=== PATIENT | female | born 1955 | race Caucasian/White ===

== ENCOUNTER 2018-10-15 13:56 | Outpatient (CLI) | payer MEDICARE ==
--- NOTE | 2018-10-15 15:01 | RAD ---
RIGHT HAND THREE VIEWS: History: Fall with injury to hand. FINDINGS: Carpals appear normally aligned. Degenerative changes are seen at the inner carpal joints and the car pal metacarpal joints. There is a small fragment from the head of the first metacarpal at the MCP joint. This appears well c orticated and does not appear to represent an acute injury. It has the appearance of an old injury. There is mild narrowing of the first MCP joint. Mild degenerative changes at the DIP joints. No evidence of acute fracture identified. IMPRESSION: 1. Fragment along the head of the first metacarpal MCP joints suggesting old injury. 2. There are degenerative changes as described. POS: [facility]
== END 2018-10-15 13:57 | disposition home or self-care (01) ==
LOC: MADRAD 13:56
PROVIDERS: ATTEND General Practice
DX: M79.641 Pain in right hand (principal); M79.89 Other specified soft tissue disorders; M19.041 Primary osteoarthritis, right hand